=== PATIENT | male | born 2000 | race Caucasian/White ===

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

== ENCOUNTER 2018-09-21 11:17 | Emergency (ER) | payer SELFPAY ==
[2018-09-21 11:37] VITALS: BP 111/78
--- NOTE | 2018-09-21 12:04 | EDM.PDOC ---
ED HPI GENERAL MEDICAL PROBLEM - General Chief Complaint: Headache Stated Complaint: hit head Time Seen by Provider: 09/21/18 12:00 Source of Information: Reports: Patient History Limitations: Reports: No Limitations - History of Present Illness INITIAL COMMENTS - FREE TEXT/NARRATIVE: 18-year-old male with previous concussions 3, hit fairly hard on the head by a metal frame of a dock that he was putting in to the galvez while at work. It knocked him onto his backside, he had a brief loss of memory but no loss of consciousness. He now has persistent nausea, light sensitivity, neck soreness and some tingling on the tips of his fingers on both hands. Onset: Sudden Duration: Hour(s): (2 hours ago) Location: Reports: Head Associated Symptoms: Reports: Confusion, Headaches, Malaise, Nausea/Vomiting, Other (Light sensitivity). Denies: Fever/Chills, Shortness of Breath - Related Data Allergies Allergy/AdvReac Type Severity Reaction Status Date / Time No Known Allergies Allergy Verified 09/21/18 11:42 Home Meds: Home Meds NK [No Known Home Meds] 04/14/14 [History] Past Medical History - Past Health History Medical/Surgical History: Denies Medical/Surgical History HEENT History: Reports: Other (See Below) Other HEENT History: fx of right eye sockett. sinus cavitity filled with blood from injury Gastrointestinal History: Reports: Other (See Below) Other Gastrointestinal History: Fell on a stick and punctured rectum, piercing large intestine and puncturing small, requiring surgery Musculoskeletal History: Reports: Other (See Below) Other Musculoskeletal History: dislocation of left shoulder Neurological History: Reports: Concussion - Past Surgical History GI Surgical History: Reports: Other (See Below) Other GI Surgeries/Procedures: had a snowboard accident and had surgery to abd/ intestine Musculoskeletal Surgical History: Reports: Other (See Below) Social & Family History - Family History Family Medical History: Noncontributory - Tobacco Use Smoking Status *Q: Former Smoker Years of Tobacco use: 4 Packs/Tins Daily: 0.2 Used Tobacco, but Quit: No - Caffeine Use Caffeine Use: Reports: Coffee, Soda ED ROS GENERAL - Review of Systems Review Of Systems: See Below Constitutional: Reports: Malaise. Denies: Fever, Chills HEENT: Reports: Other. Denies: Vision Change Respiratory: Denies: Shortness of Breath (Photophobia), Cough Cardiovascular: Denies: Chest Pain GI/Abdominal: Denies: Abdominal Pain, Nausea, Vomiting Skin: Reports: No Symptoms Neurological: Reports: Dizziness, Headache, Other (Paresthesias at his fingertips bilaterally) Psychiatric: Reports: No Symptoms ED EXAM, HEAD INJURY - Physical Exam Exam: See Below Exam Limited By: No Limitations General Appearance: Alert, No Apparent Distress Head: Other (Some tenderness on the anterior and slight right parietal area of the scalp but no hematoma, abrasion or evidence of injury.) Nexus Criteria: No: Evidence of Intoxication Eyes: Bilateral Eye: Normal Inspection, PERRL Throat/Mouth: Normal Inspection Neck: Other (Moderate paraspinous muscle tenderness to palpation, no focal tenderness or vertebral percussion tenderness) Respiratory: No Respiratory Distress Neurologic: No Motor/Sensory Deficits, Alert, Oriented x 3, Depressed Affect. No: Facial Droop, Disoriented x 3 Course - Vital Signs Last Recorded V/S: Last Vital Signs Temp 97.3 F 09/21/18 11:48 Pulse 71 09/21/18 11:48 Resp 20 09/21/18 11:48 BP 111/78 09/21/18 11:48 Pulse Ox 100 09/21/18 11:48 - Orders/Labs/Meds Meds: Medications Discontinued Medications Generic Name Dose Route Start Last Admin Trade Name Zandra PRN Reason Stop Dose Admin Fentanyl 50 mcg 09/21/18 12:28 09/21/18 12:39 Sublimaze IM 09/21/18 12:29 50 mcg ONETIME ONE Administration - Re-Assessments/Exams Free Text/Narrative Re-Assessment/Exam: 09/21/18 13:26 Due to the significant symptoms, depressed affect and the previous concussion history, a CT the head and neck without contrast was obtained. Patient was given 50 g of fentanyl IM. CT results were normal, he was discharged with instructions on concussion care and recheck advice. Departure - Departure Time of Disposition: 13:50 Disposition: Home, Self-Care 01 Clinical Impression: Concussion Qualifiers: Encounter type: initial encounter Loss of consciousness presence/duration: without LOC Qualified Code(s): S06.0X0A - Concussion without loss of consciousness, initial encounter - Discharge Information Instructions: Concussion, Adult, [id number] Referrals: PCP,None [Primary Care Provider] - Forms: ED Department Discharge Care Plan Goals: Rest today, regular dose of anti-inflammatory may help and ice to sore areas over the next 2 days. Increase activity as tolerated and recheck next week if not improving satisfactorily.
[2018-09-21] MEDS ORDERED: fentaNYL 100 MCG/2 ML SDV IM ONE (12:28)
--- NOTE | 2018-09-21 12:55 | CRLCT ---
INDICATION: Head injury.. TECHNIQUE: CT Head without contrast. COMPARISON: None. FINDINGS: CSF spaces: Within normal limits for age. A small round midline lucent presumed arachnoid cyst posterior superior posterior fossa, just below the tentorium. Brain parenchyma: The hcavez-white differentiation is normal. No sign of mass, hemorrhage, or midline shift. Skull base and calvarium: The visualized paranasal sinuses and mastoid air cells are clear. The visualized orbits are grossly unremarkable. No skull fractures. . IMPRESSION: Unremarkable noncontrast head CT. Please note that all CT scans at this facility use dose modulation, iterative reconstruction, and/or weight-based dosing when appropriate to reduce radiation dose to as low as reasonably achievable. Dictated by Saeid Cook MD @ Sep 21 2018 12:51PM Signed by Dr. Saeid Cook @ Sep 21 2018 12:53PM
--- NOTE | 2018-09-21 12:55 | CRLCT ---
INDICATION: head injury TECHNIQUE: Helical non-contrast images of the cervical spine from skull base to thoracic inlet were obtained. Axial, coronal and sagittal thin section 2-D reformats are provided. FINDINGS: There is no acute fracture or malalignment. Prevertebral soft tissues are within normal limits. No significant degenerative change is present. Visualized posterior fossa is unremarkable. Central canal is widely patent. IMPRESSION: No acute fracture or malalignment cervical spine. No acute findings. Please note that all CT scans at this facility use dose modulation, iterative reconstruction, and/or weight-based dosing when appropriate to reduce radiation dose to as low as reasonably achievable. Dictated by: Saeid Cook MD @ 09/21/2018 12:53:53 (Electronically Signed)
== END 2018-09-21 13:52 | disposition home or self-care (01) ==
LOC: JP.ED 11:17
DX: S06.0X0A Concussion without loss of consciousness, initial encounter (principal); Z87.891 Personal history of nicotine dependence; W22.8XXA Striking against or struck by other objects, initial encounter
CPT/HCPCS: 70450; 72125; 96372; 99284; J3010

== ENCOUNTER 2018-10-25 16:36 | Emergency (ER) | payer MEDICAID ==
[2018-10-25 17:08] VITALS: BP 138/63
--- NOTE | 2018-10-25 18:28 | CRLCR ---
INDICATION: Injury. FINDINGS: Two views of the left foot were obtained. There is no acute fracture seen or dislocation. IMPRESSION: No acute bone abnormality. Dictated by Claudio Penaloza MD @ 10/25/2018 6:26:02 PM Dictated by: Claudio Penaloza MD @ 10/25/2018 18:26:28 (Electronically Signed)
--- NOTE | 2018-10-25 18:28 | CRLCR ---
INDICATION: Pain after injury COMPARISON: None available. FINDINGS: AP, lateral and oblique views of the left ankle were obtained for a total of three views. There is no sign of fracture or dislocation. The ankle mortise is intact. The talar dome is intact. There is no sign of a joint effusion. There is mild swelling over the lateral malleolus with no evidence of an underlying fracture. The soft tissues are otherwise normal in appearance and there is no sign of any radiopaque foreign body. No degenerative changes are seen. IMPRESSION: No sign of acute osseous injury. Mild lateral soft tissue swelling. Dictated by Morales Nagy MD @ Oct 25 2018 6:25PM Signed by Dr. Morales Nagy @ Oct 25 2018 6:26PM
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
== END 2018-10-25 18:48 | disposition home or self-care (01) ==
LOC: JP.ED 16:36
DX: S93.432A Sprain of tibiofibular ligament of left ankle, initial encounter (principal); S93.602A Unspecified sprain of left foot, initial encounter; F17.210 Nicotine dependence, cigarettes, uncomplicated; V86.59XA Driver of other special all-terrain or other off-road motor vehicle injured in nontraffic accident, initial encounter
CPT/HCPCS: 73610-LT; 73620-LT; 99283-25

== ENCOUNTER 2019-03-11 23:10 | Emergency (ER) | payer SELFPAY ==
[2019-03-11 23:29] VITALS: BP 110/86; PULSE 86
[2019-03-11] MEDS ORDERED: Aluminum Hydroxide/Magnesium Hydroxide/Simethicone Susp 30 ML Cup PO ONE (23:37)
[2019-03-11] MEDS ORDERED: diphenhydrAMINE 50 MG/ML SDV IM ONE (23:38)
--- NOTE | 2019-03-11 23:44 | EDM.PDOC ---
ED HPI GENERAL MEDICAL PROBLEM - General Chief Complaint: Allergic Reaction Stated Complaint: MEDICAL Time Seen by Provider: 03/11/19 23:30 Source of Information: Reports: Patient, Significant Other History Limitations: Reports: Intoxication - History of Present Illness INITIAL COMMENTS - FREE TEXT/NARRATIVE: 18-year-old male whose been drinking all day, started drinking vodka this evening. 3 hours ago he started getting a sharp pain in his chest, erythema of his face chest and arms, and and itching. It appeared to be a reaction to what he was drinking. He has had these before. No shortness of breath but he does have pleuritic pain with breathing. He is now feeling better but his girlfriend wants him checked out. Onset: Sudden (Symptoms started fairly suddenly about 3 hours ago) Associated Symptoms: Reports: Chest Pain, Shortness of Breath Chest Pain Score (Numeric/FACES): 9 - Related Data Allergies Allergy/AdvReac Type Severity Reaction Status Date / Time No Known Allergies Allergy Verified 03/11/19 23:14 Home Meds: Home Meds NK [No Known Home Meds] 04/14/14 [History] Past Medical History - Past Health History Medical/Surgical History: Denies Medical/Surgical History HEENT History: Reports: Other (See Below) Other HEENT History: fx of right eye sockett. sinus cavitity filled with blood from injury Gastrointestinal History: Reports: Other (See Below) Other Gastrointestinal History: Fell on a stick and punctured rectum, piercing large intestine and puncturing small, requiring surgery Musculoskeletal History: Reports: Other (See Below) Other Musculoskeletal History: dislocation of left shoulder Neurological History: Reports: Concussion - Past Surgical History GI Surgical History: Reports: Other (See Below) Other GI Surgeries/Procedures: had a snowboard accident and had surgery to abd/ intestine Neurological Surgical History: Reports: None Musculoskeletal 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, Other (See Below) Other Musculoskeletal Surgeries/Procedures:: tip of right index finger Social & Family History - Family History Family Medical History: Noncontributory - Tobacco Use Smoking Status *Q: Current Every Day Smoker Years of Tobacco use: 5 Packs/Tins Daily: 1 Used Tobacco, but Quit: No Second Hand Smoke Exposure: Yes - Caffeine Use Caffeine Use: Reports: Coffee - Alcohol Use Days Per Week of Alcohol Use: 7 Number of Drinks Per Day: 20 Total Drinks Per Week: 140 - Recreational Drug Use Recreational Drug Use: No ED ROS ALLERGIC REACTION - Review of Systems Review Of Systems: See Below Constitutional: Denies: Fever, Chills HEENT: Reports: No Symptoms Respiratory: Reports: Shortness of Breath Cardiovascular: Reports: Chest Pain GI/Abdominal: Denies: Abdominal Pain, Nausea, Vomiting Skin: Reports: Urticaria Neurological: Denies: Headache ED EXAM GENERAL NO PERIP PULSE - Physical Exam Exam: See Below Exam Limited By: Intoxication General Appearance: Alert, No Apparent Distress Throat/Mouth: Normal Inspection Head: Atraumatic Respiratory/Chest: No Respiratory Distress, Lungs Clear Cardiovascular: Regular Rate, Rhythm GI/Abdominal: Soft Skin Exam: Other (Does seem to have some hyperemic skin still on the hands and lower abdomen, a small amount of the face. No true urticarial lesions at this time.) Course - Vital Signs Last Recorded V/S: Last Vital Signs Temp 98 F 03/11/19 23:28 Pulse 86 03/11/19 23:28 Resp 16 03/11/19 23:28 BP 110/86 03/11/19 23:28 Pulse Ox 97 03/11/19 23:28 - Orders/Labs/Meds Meds: Medications Discontinued Medications Generic Name Dose Route Start Last Admin Trade Name Chungq PRN Reason Stop Dose Admin Al Hydroxide/Mg Hydroxide 30 ml 03/11/19 23:37 03/11/19 23:46 Mag-Al Plus PO 03/11/19 23:38 30 ml ONETIME ONE Administration Diphenhydramine HCl 25 mg 03/11/19 23:38 03/11/19 23:45 Benadryl IM 03/11/19 23:39 25 mg ONETIME ONE Administration - Re-Assessments/Exams Free Text/Narrative Re-Assessment/Exam: 03/11/19 23:43 Given 30 mL of milk of magnesia along with 25 mg of IM Benadryl. If he avoids alcohol further as the evening he should continue to improve. Recheck tomorrow if not improving. Departure - Departure Time of Disposition: 00:00 Disposition: Home, Self-Care 01 Clinical Impression: Urticaria - Discharge Information Instructions: Allergies, Adult Referrals: PCP,None [Primary Care Provider] - Forms: ED Department Discharge Care Plan Goals: Avoid alcohol for the rest of the evening. Recheck tomorrow if not improving satisfactorily.
== END 2019-03-12 | disposition home or self-care (01) ==
LOC: JP.ED 23:10
DX: J40 Bronchitis, not specified as acute or chronic (principal); E78.00 Pure hypercholesterolemia, unspecified; E03.9 Hypothyroidism, unspecified; Z79.82 Long term (current) use of aspirin; Z79.899 Other long term (current) drug therapy
CPT/HCPCS: 96372; 99282; 99284; A9270; J1200

== ENCOUNTER 2019-06-14 22:50 | Emergency (ER) | payer SELFPAY ==
--- NOTE | 2019-06-14 23:20 | EDM.PDOC ---
ED HPI GENERAL MEDICAL PROBLEM - General Chief Complaint: Abdominal Pain Stated Complaint: THROWING UP BOOLD,PAIN IN SIDE Time Seen by Provider: 06/14/19 23:00 Source of Information: Reports: Patient History Limitations: Reports: Intoxication - History of Present Illness INITIAL COMMENTS - FREE TEXT/NARRATIVE: 19-year-old male, chronic alcohol abuser presents with right-sided abdominal pain and hematemesis after drinking heavily. No fevers or chills. Denies back pain or dark stools. 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 Onset: Unknown/Unsure Associated Symptoms: Reports: Nausea/Vomiting. Denies: Chest Pain, Malaise, Shortness of Breath RLQ Pain Score (Numeric/FACES): 5 - Related Data Allergies Allergy/AdvReac Type Severity Reaction Status Date / Time No Known Allergies Allergy Verified 06/14/19 23:15 Home Meds: Home Meds NK [No Known Home Meds] 06/14/19 [History] Past Medical History HEENT History: Reports: Other (See Below) Other HEENT History: fx of right eye sockett. sinus cavitity filled with blood from injury Gastrointestinal History: Reports: Other (See Below) Other Gastrointestinal History: Fell on a stick and punctured rectum, piercing large intestine and puncturing small, requiring surgery Musculoskeletal History: Reports: Other (See Below) Other Musculoskeletal History: dislocation of left shoulder Neurological History: Reports: Concussion - Infectious Disease History Infectious Disease History: Reports: Chicken Pox - Past Surgical History Head Surgeries/Procedures: Reports: None GI Surgical History: Reports: Other (See Below) Other GI Surgeries/Procedures: had a snowboard accident and had surgery to abd/ intestine Musculoskeletal 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 Denies: Fever, Chills HEENT: Reports: No Symptoms Respiratory: Denies: Shortness of Breath Cardiovascular: Denies: Chest Pain GI/Abdominal: Reports: Abdominal Pain, Hematemesis, Nausea, Vomiting Skin: Reports: No Symptoms Neurological: Denies: Headache ED EXAM, GI/ABD - Physical Exam Exam: See Below Exam Limited By: Intoxication (Patient is quite intoxicated) General Appearance: Alert, No Apparent Distress, Other (Looks uncomfortable) Eyes: Bilateral: Normal Appearance Head: Atraumatic Respiratory/Chest: No Respiratory Distress GI/Abdominal Exam: Tender (React with tenderness to palpation in the right upper quadrant and epigastric area, no pain on the left side or lower abdomen) Course - Vital Signs Last Recorded V/S: Last Vital Signs Temp 96.5 F L 06/14/19 23:05 Pulse 98 06/14/19 23:05 Resp 14 06/14/19 23:05 BP 128/59 L 06/14/19 23:05 Pulse Ox 98 06/14/19 23:05 - Orders/Labs/Meds Labs: Laboratory Tests 06/14/19 06/14/19 06/14/19 Range/Units 23:25 23:25 23:25 WBC 8.6 (4.5-11.0) K/uL RBC 4.71 (4.30-5.90) M/uL Hgb 14.6 (12.0-15.0) g/dL Hct 44.3 (40.0-54.0) % MCV 94 (80-98) fL MCH 31 (27-31) pg MCHC 33 (32-36) % Plt Count 243 (150-400) K/uL Neut % (Auto) 55 (36-66) % Lymph % (Auto) 35 (24-44) % Lamoure % (Auto) 9 H (2-6) % Eos % (Auto) 1 L (2-4) % Baso % (Auto) 1 (0-1) % Sodium 145 (140-148) mmol/L Potassium 3.9 (3.6-5.2) mmol/L Chloride 106 (100-108) mmol/L Carbon Dioxide 26 (21-32) mmol/L Anion Gap 13.0 (5.0-14.0) mmol/L BUN 13 D (7-18) mg/dL Creatinine 1.0 (0.8-1.3) mg/dL Est Cr Clr Drug Dosing 128.26 mL/min Estimated GFR (MDRD) > 60 (>60) Glucose 105 (74-106) mg/dL Calcium 8.6 (8.5-10.1) mg/dL Total Bilirubin 0.4 (0.2-1.0) mg/dL AST 23 (15-37) U/L ALT 27 (12-78) U/L Alkaline Phosphatase 52 (46-116) U/L Total Protein 7.8 (6.4-8.2) g/dL Albumin 4.4 (3.4-5.0) g/dL Globulin 3.4 (2.3-3.5) g/dL Albumin/Globulin Ratio 1.3 (1.2-2.2) Amylase 63 (25-115) U/L Lipase 143 (73-393) U/L Ethyl Alcohol 198 mg/dL Meds: Medications Discontinued Medications Generic Name Dose Route Start Last Admin Trade Name Freq PRN Reason Stop Dose Admin Al Hydroxide/Mg Hydroxide 15 0 ml 06/14/19 23:34 06/14/19 23:40 ml/ Lidocaine HCl 15 ml PO 06/14/19 23:35 30 ml ONETIME ONE Administration Pantoprazole Sodium 40 mg 06/15/19 23:59 Protonix PO 06/15/19 00:05 ONETIME ONE Pantoprazole Sodium 40 mg 06/15/19 00:05 06/15/19 00:08 Protonix PO 06/15/19 00:06 40 mg ONETIME ONE Administration Pantoprazole Sodium Confirm 06/15/19 00:08 Protonix Administered 06/15/19 00:09 Dose 40 mg .ROUTE .STK-MED ONE - Re-Assessments/Exams Free Text/Narrative Re-Assessment/Exam: 06/14/19 23:20 CBC, CMP, amylase lipase and EtOH were obtained. He is allowing us to draw blood tests but is refusing any other type of IV therapy because of his fear of needles. 06/14/19 23:59 Patient was given a GI cocktail with little relief, his CBC CMP amylase and lipase all returned normal. EtOH was 0.198. He was then given 40 mg of oral Protonix, and encouraged to start 40 mg of omeprazole daily for at least 7 days. Avoid alcohol. Departure - Departure Time of Disposition: 00:02 Disposition: Home, Self-Care 01 Clinical Impression: Abdominal pain Qualifiers: Abdominal location: right upper quadrant Qualified Code(s): R10.11 - Right upper quadrant pain Alcohol intoxication Qualifiers: Complication of substance-induced condition: uncomplicated Qualified Code(s): F10.920 - Alcohol use, unspecified with intoxication, uncomplicated - Discharge Information Instructions: Gastritis, Adult, [id number] Referrals: PCP,None [Primary Care Provider] - Forms: ED Department Discharge Care Plan Goals: It is strongly recommended that you avoid alcohol over the next several weeks, and take 40 mg of omeprazole daily for the next 10 to 14 days which can be bought [id number]. Recheck in 2 to 3 days if not improving satisfactorily , or return sooner if worsening such as increased vomiting. Sepsis Event Note - Focused Exam Vital Signs: Vital Signs Temp Pulse Resp BP Pulse Ox 06/14/19 23:05 96.5 F L 98 14 128/59 L 98 Date Exam was Performed: 06/15/19 Time Exam was Performed: 01:50
[2019-06-14 23:29] VITALS: BP 128/59; PULSE 98
[2019-06-14] MEDS ORDERED: Alum Hydrox/Mag Hydrox/Simeth 15 ML, Lidocaine 2% 15 ML PO ONE ×2 (23:34)
[2019-06-15] MEDS ORDERED: Pantoprazole 40 MG Tab.CR PO ONE ×2 (00:05→23:59)
[2019-06-15] MEDS ORDERED: Pantoprazole 40 MG Tab.CR ONE (00:08)
== END 2019-06-15 00:16 | disposition home or self-care (01) ==
LOC: JP.ED 22:50
DX: R10.11 Right upper quadrant pain (principal); F10.120 Alcohol abuse with intoxication, uncomplicated; Y90.6 Blood alcohol level of 120-199 mg/100 ml; F17.210 Nicotine dependence, cigarettes, uncomplicated
CPT/HCPCS: 36415; 80053; 80307; 82150; 83690; 85025; 99283; 99284; A9270

== ENCOUNTER 2021-10-03 07:42 | Emergency (ER) | payer MEDICAID ==
[2021-10-03] MEDS ORDERED: Sodium Chloride 0.9% 10 ML Syringe FLUSH PRN (08:13)
[2021-10-03] MEDS ORDERED: Ondansetron 4 MG/2 ML SDV IVPUSH ONE (08:13)
[2021-10-03] MEDS ORDERED: Acetaminophen 1,000 MG in Premix Bag 1 BAG IV ONE ×2 (08:13→08:30)
[2021-10-03] MEDS ORDERED: Pantoprazole 40 MG Vial IVPUSH ONE (09:42)
[2021-10-03 11:19] VITALS: BP 113/57; PULSE 60
== END 2021-10-03 11:20 | disposition home or self-care (01) ==
LOC: JP.ED 07:42
DX: K29.01 Acute gastritis with bleeding (principal); K92.0 Hematemesis; Z79.899 Other long term (current) drug therapy
CPT/HCPCS: 36415; 76705; 80053; 83690; 85025; 85610; 85730; 96365; 96375; 99283; 99284; C9113; J0131; J2405; J3490

== ENCOUNTER 2021-10-30 02:33 | Emergency (ER) | payer MEDICAID ==
[2021-10-30 02:42] VITALS: BP 122/64; PULSE 100
[2021-10-30 03:08] LABS: ESTIMATED GFR 123 mL/min (>60)
== END 2021-10-30 03:40 | disposition home or self-care (01) ==
LOC: JP.ED 02:33
DX: S40.012A Contusion of left shoulder, initial encounter (principal); S16.1XXA Strain of muscle, fascia and tendon at neck level, initial encounter; M54.12 Radiculopathy, cervical region; F17.210 Nicotine dependence, cigarettes, uncomplicated; W10.8XXA Fall (on) (from) other stairs and steps, initial encounter
CPT/HCPCS: 36415; 72125; 73030-LT; 80053; 80307; 85025; 99284-25

== ENCOUNTER 2022-03-01 06:45 | Emergency (ER) | payer MEDICAID ==
[2022-03-01 07:23] VITALS: BP 127/80; PULSE 71
[2022-03-01] MEDS ORDERED: Alum Hydrox/Mag Hydrox/Simeth 15 ML, Lidocaine 2% 15 ML PO ONE ×2 (07:25)
== END 2022-03-01 08:41 | disposition home or self-care (01) ==
LOC: JP.ED 06:45
DX: R07.89 Other chest pain (principal); F17.210 Nicotine dependence, cigarettes, uncomplicated; Z79.899 Other long term (current) drug therapy; Z20.822 Contact with and (suspected) exposure to COVID-19
CPT/HCPCS: 36415; 80048; 84484; 85025; 87635; 99284; A9270; U0002

== ENCOUNTER 2023-01-06 15:17 | Emergency (ER) | payer SELFPAY ==
[2023-01-06] MEDS ORDERED: Ketorolac 30 MG/ML SDV IVPUSH ONE (15:31)
[2023-01-06] MEDS ORDERED: Bacitracin Oint 1 GM U/D Packet TOP ONE (15:31)
[2023-01-06] MEDS ORDERED: Sodium Chloride 0.9% 10 ML Syringe FLUSH PRN (15:32)
[2023-01-06 15:36] LABS: BASOPHILS ABSOLUTE AUTO 0.07 K/uL (0.00-0.10); BASOPHILS PERCENT AUTO 0.8 % (0.1-1.3); EOSINOPHILS ABSOLUTE AUTO 0.11 K/uL (0.00-0.40); EOSINOPHILS PERCENT AUTO 1.3 % (0.0-5.4); HEMATOCRIT 42.7 % (38.4-49.7); HEMOGLOBIN 14.4 g/dL (12.9-16.9); IMMATURE GRAN PERCENT AUTO 0.2 % (0.0-0.7); LYMPHOCYTES ABSOLUTE AUTO 2.82 K/uL (0.8-3.3); LYMPHOCYTES PERCENT AUTO 34.2 % (11.4-47.7); MEAN CORPUSCULAR HGB CONC 33.7 g/dL (31.6-35.5); MEAN CORPUSCULAR VOLUME 91.8 fL (81.4-99.0); MONOCYTES ABSOLUTE AUTO 0.62 K/uL (0.20-0.90); MONOCYTES PERCENT AUTO 7.5 % (3.3-12.6); PLATELET COUNT,PLT 288 K/uL (130-375); RED BLOOD CELL COUNT 4.65 M/uL (4.14-5.76); WHITE BLOOD CELL COUNT,WBC 8.2 K/uL (3.2-11.0)
[2023-01-06 15:37] LABS: IMMATURE GRAN ABSOLUTE AUTO 0.02 K/uL (0.00-0.23)
[2023-01-06 15:49] LABS: BLOOD UREA NITROGEN,BUN 16 mg/dL (7-18); CALCIUM 9.1 mg/dL (8.5-10.1); CARBON DIOXIDE,CO2 24 mmol/L (21-32); CHLORIDE,CL 100 mmol/L (100-108); ESTIMATED GFR 108 mL/min (>60); GLUCOSE RANDOM 86 mg/dL (74-106); SODIUM,NA 137 mmol/L (140-148)
== END 2023-01-06 16:31 | disposition home or self-care (01) ==
LOC: JP.ED 15:17
DX: S40.012A Contusion of left shoulder, initial encounter (principal); S50.811A Abrasion of right forearm, initial encounter; S40.022A Contusion of left upper arm, initial encounter; X58.XXXA Exposure to other specified factors, initial encounter
CPT/HCPCS: 36415; 71045; 73030; 73060; 80048; 85025; 93005; 96374; 99284; J1885